=== PATIENT | female | born 1980 | race Caucasian/White ===

== ENCOUNTER 2020-03-29 20:00 | Outpatient (CLI) | payer OTHER, SELFPAY | END 2020-03-29 20:01 | disposition home or self-care (01) | LOC: SLEEP 03-30 08:45 | PROVIDERS: Visit Provider Nurse Practitioner | DX: G47.33 Obstructive sleep apnea (adult) (pediatric) (principal) | CPT/HCPCS: 95811 ==

== ENCOUNTER 2020-04-07 15:32 | Outpatient (CLI) | payer OTHER, SELFPAY ==
[2020-04-07 16:11] LABS: Basophils # 0.1 10^3/uL (0.0-0.1); Basophils % 0.5 %; Eosinophils # 0.2 10^3/uL (0.0-0.8); Eosinophils % 2.1 %; Hematocrit 45.4 % (37.0-47.0); Hemoglobin 14.9 g/dL (11.5-15.3); Lymphocytes # 3.9 10^3/uL (0.8-4.8); Lymphocytes % 35.3 %; Mean Corpuscular HGB Conc 32.8 g/dL (30.0-36.0); Mean Corpuscular Hemoglobin 29.5 pg (28.0-34.0); Mean Corpuscular Volume 89.9 fL (81-99); Mean Platelet Volume 8.8 fL (7.4-10.4); Monocytes # 0.5 10^3/uL (0.2-0.9); Monocytes % 4.5 %; Neutrophils # 6.32 10^3/uL (1.8-7.7); Neutrophils % 57.2 %; Nucleated Red Blood Cells % 0 %; Platelet Count 319 10^3/cmm (130-400); Red Blood Count 5.05 10^6/uL (4.1-5.3); Red Cell Distribution Width 12.2 % (12.1-15.1)
[2020-04-07 17:14] LABS: Alanine Aminotransferase 15 U/L (0-33); Albumin Level 4.2 g/dL (3.5-5.2); Alkaline Phosphatase 147 IU/L (35-105); Aspartate Amino Transferase 16 U/L (0-32); Blood Urea Nitrogen 6 mg/dL (6-20); Calcium 9.8 mg/dL (8.5-10.5); Carbon Dioxide 28 mmol/L (22-29); Chloride 99 mmol/L (98-107); Globulin 3.3 g/dL (1.3-4.6); Glomerular Filtration Rate 93.6 mL/min (90-130); Glucose 89 mg/dL (65-115); Osmolality Calculated 279 mOsm/kg (285-295); Sodium 136 mmol/L (136-145); Total Bilirubin 0.2 mg/dL (0.15-1.2); Total Protein 7.5 g/dL (6.6-8.7)
[2020-04-07 17:45] LABS: HIV 1 & 2 Antibody Non-Reactive (Non-Reactiv); HIV 1 & 2 Antigen Non-Reactive (Non-Reactiv)
[2020-04-07 17:49] LABS: Hepatitis A Antibody IgM Non-Reactive (Nonreactive); Hepatitis B Core AB, Total Non-Reactive (Nonreactive); Hepatitis B Surface Antigen Non-Reactive (Nonreactive); Hepatitis C Virus Antibody Non-Reactive (Nonreactive)
[2020-04-09 14:14] LABS: Quantiferon Mitogen >10.00 IU/mL; Quantiferon Nil 0.02 IU/mL; Quantiferon Plus TB1 0.06 IU/mL; Quantiferon Plus TB2 0.09 IU/mL; Quantiferon TB Gold NEGATIVE (NEGATIVE)
== END 2020-04-07 15:33 | disposition home or self-care (01) ==
PROVIDERS: PCP Nurse Practitioner; Visit Provider Dermatology
DX: L73.2 Hidradenitis suppurativa (principal); Z79.899 Other long term (current) drug therapy
CPT/HCPCS: 36415; 80053; 85025; 86480; 86705; 86706; 86709; 86803; 87340; 87806

== ENCOUNTER → 2021-01-06 11:55 | Outpatient (BNVA) | payer OTHER, SELFPAY | PROVIDERS: PCP Nurse Practitioner; Visit Provider Surgery | DX: Z11.52 Encounter for screening for COVID-19 (principal) | CPT/HCPCS: 87635 ==

== ENCOUNTER 2021-01-12 08:26 | Day surgery (SDC) | payer OTHER, SELFPAY ==
[2021-01-07 09:32] VITALS: BMI 31.1
--- NOTE | 2021-01-12 08:47 | ANES.PREANE2 ---
Pre-Anesthetic Assessment Pre-Anesthetic Assessment: Height/Weight: Height 1.55 m Weight 74.843 kg Proposed Procedure: Operation Date: 01/12/21 10:00 Proposed Procedures p EGD/colon 49194 97003 K21.9 R19.45(Not Applicable) - Lionel Barclay MD s Colonoscopy(Not Applicable) - Lionel Barclay MD Was Beta Stew taken within 24 hours: N/A Was Clonidine taken within 24 hours: N/A Social: Social History: Tobacco and No alcohol Exam: Pre-Anes Outpt Exam: alert, oriented x 3 and regular rate & rhythm Airway: Submandibular: WNL Cervical ROM: WNL MP: 2 Dentition: Full Pulmonary: Pulmonary: COPD GI: GI: GERD Metabolic: Metabolic: Thyroid Anesthetic Plan: ASA status: 2 Anesthesia: MAC Risk of > 500 ml blood loss (7ml/kg in children): No PFSH Anesthesia PFSH: Medical History Hidradenitis suppurativa High risk medication use Hypothyroid Surgical History H/O knee surgery History of tubal ligation Hx of appendectomy Family History Other Cancer Social History Alcohol intake: never Female Reproductive History: Date of last menstrual period: 12/24/20 Data Anesthesia Cardiac Studies: No Data to Display
[2021-01-12 09:22] VITALS: BP 118/69; PULSE 76; RESP 18; TEMP 36.7; O2SAT 97
[2021-01-12 09:22] LABS: OR HCG Qualitative Urine Negative (Negative)
[2021-01-12] MEDS: sodium chloride 0.9% 1,000 ML 30 ML IV (09:38)
--- NOTE | 2021-01-12 09:48 | W.PM.OPSFHP ---
Same Day Surgery H&P Indication for Procedure/HPI DATE OF PROCEDURE: January 12, 2021 CHIEF COMPLAINT/INDICATIONFOR SURGICAL PROCEDURE: Issues with the bowel PREOP DIAGNOSIS: Change in bowel habits and acid reflux PLANNED PROCEDRUE: Operation Date: 01/12/21 10:00 Proposed Procedures p EGD/colon 49851 53748 K21.9 R19.45(Not Applicable) - Lionel Barclay MD s Colonoscopy(Not Applicable) - Lionel Barclay MD 11/25/2020 This is a pleasant 40 years old female patient presents to my practice with history of diarrhea alternating with constipation without bleeding per rectum for the past 3 to 4 years. Without obvious explanation. Still have her gallbladder as she reports but she does not have any issues with specific type of food. Patient also reports that she has been on PPI therapy for more than 6 months for acid reflux disease. She was started recently on Humira per dermatology service for recurrent hidradenitis suppurativa. No evidence of history of colon cancer. Interim history 01/12/2021 Patient comes today for diagnostic EGD and colonoscopy ROS All systems have been reviewed negative except as per the above or per problem list Medications/Allergies* Home Medications Medication Instructions Recorded Confirmed Type gemfibrozil 600 mg tablet 600 mg PO BID 04/07/20 01/07/21 History levothyroxine 75 mcg tablet 75 mcg PO DAILY 04/07/20 01/07/21 History omeprazole 20 mg capsule,delayed 20 mg PO DAILY 04/07/20 01/07/21 History release Allergies/Adverse Reactions Allergy/AdvReac Type Severity Reaction Status Date / Time ibuprofen Allergy kidney Verified 01/12/21 09:50 [From NeoProfen (ibuprofen problems lysn)(PF)] Current Medications: Generic Name Dose Route Start Last Admin Trade Name Freq PRN Reason Stop Dose Admin Sodium Chloride 1,000 mls @ 30 mls/hr 01/12/21 09:00 01/12/21 09:38 Sodium Chloride 0.9% IV 01/13/21 08:59 30 mls/hr .Q24H MEGAN Administration Pertinent History/Comorbid Conditions* Medical History (Updated 11/27/20 @ 08:36 by Lionel Barclay MD) Hidradenitis suppurativa High risk medication use Hypothyroid Surgical History (Updated 04/11/20 @ 14:54 by Bernarda Rebollar DO) H/O knee surgery History of tubal ligation Hx of appendectomy Family History (Updated 04/07/20 @ 15:01 by Regina Lundberg LPN) Cancer Social History Alcohol intake: never Pertinent Exam Findings alert, oriented x 3, clear to auscultation bilaterally, regular rate & rhythm and procedure specific exam findings (Abdominal examination nontender nondistended soft) Recommendations Surgery/Procedure today (EGD and colonoscopy with possible biopsy) Other Plans: Plan of care; After thorough history and physical examination and reviewing the chart, plan to perform a diagnostic esophagogastroduodenoscopy and diagnostic colonoscopy with possible biopsy and possible polypectomy. I discussed with the patient in detail the risks,benefits,alternatives and indications.The risk of aspiration, bleeding, soft tissue injury, perforation of the stomach/esophagus/colon and other potential concomitant complications were explained to the patient in details also the potential need for Thoracotomy and or Laproscoy/Laparotomy to repair any related complications including but not limited to colectomy and or Closotomy. The patient understood this well and did agree to proceed. Rationale was carefully and clearly discussed with the patient.Appropriate informed consent have been reviewed and signed Verbal and written Instructions were given to the patient for colonoscopy prep Coding Level of Care Code Acute Compounder [employer] for [facility] [place]
[2021-01-12 12:03] VITALS: BP 107/82; PULSE 93; RESP 20; TEMP 36.2; O2SAT 96
[2021-01-12 12:13] VITALS: BP 103/80; PULSE 92; RESP 20; O2SAT 97
--- NOTE | 2021-01-12 13:29 | ANE.PACU2 ---
Inpatient post-anesthesia follow up: Airway intact: Yes Vital signs: Temperature 97.2 F Pulse Rate 92 Respiratory Rate 20 Blood Pressure 103/80 Pulse Oximetry 97 Oxygen Delivery Me thod Nasal Cannula Oxygen Flow Rate 4 Fraction of Inspir ed Oxygen Hydration adequate: Yes Nausea and vomiting: No Pain level: 1 Mental status: Baseline
[2021-01-13 13:03] LABS: H. Pylori / CLO Test Negative
== END 2021-01-12 12:59 | disposition home or self-care (01) ==
PROVIDERS: Anesthesiology; PCP Nurse Practitioner; Visit Provider Surgery
PROC: 0DJ08ZZ Inspection of Upper Intestinal Tract, Via Natural or Artificial Opening Endoscopic (ICD-10-PCS; CPT 43235; principal; 2021-01-12 10:00)
PROC: 0DJD8ZZ Inspection of Lower Intestinal Tract, Via Natural or Artificial Opening Endoscopic (ICD-10-PCS; CPT 45378; 2021-01-12 10:00)
DX: R19.4 Change in bowel habit (principal); R19.7 Diarrhea, unspecified; K21.9 Gastro-esophageal reflux disease without esophagitis; E03.9 Hypothyroidism, unspecified; K31.7 Polyp of stomach and duodenum; K63.3 Ulcer of intestine; J44.9 Chronic obstructive pulmonary disease, unspecified; Z11.0 Encounter for screening for intestinal infectious diseases
CPT/HCPCS: 43239; 45380; 82274; 83630; 84703; 87077; 87493; 87506; 88305; 96360; 96361; J2704; J7030

== ENCOUNTER 2021-04-12 11:58 | Emergency (ER) | payer OTHER, SELFPAY ==
[2021-04-12 12:31] VITALS: BP 119/78; PULSE 90; RESP 16; TEMP 36.9; O2SAT 97; BMI 31.1
[2021-04-12 13:38] LABS: Basophils # 0.1 10^3/uL (0.0-0.1); Basophils % 0.6 %; Eosinophils # 0.3 10^3/uL (0.0-0.8); Eosinophils % 3.2 %; Hematocrit 45.1 % (37.0-47.0); Hemoglobin 15.1 g/dL (11.5-15.3); Lymphocytes # 3.6 10^3/uL (0.8-4.8); Lymphocytes % 36.1 %; Mean Corpuscular HGB Conc 33.5 g/dL (30.0-36.0); Mean Corpuscular Volume 92.6 fl (81-99); Mean Platelet Volume 9.1 fL (7.4-10.4); Monocytes # 0.8 10^3/uL (0.2-0.9); Neutrophils # 5.19 10^3/uL (1.8-7.7); Neutrophils % 51.8 %; Nucleated Red Blood Cells % 0 %; Platelet Count 281 10^3/cmm (130-400); Red Blood Count 4.87 10^6/uL (4.1-5.3); Red Cell Distribution Width 12.2 % (12.1-15.1)
[2021-04-12 14:06] LABS: Alanine Aminotransferase 19 U/L (0-33); Albumin Level 4.2 g/dL (3.5-5.2); Alkaline Phosphatase 105 IU/L (35-105); Anion Gap 12.9 (5-19); Aspartate Amino Transferase 16 U/L (0-32); Blood Urea Nitrogen 6 mg/dL (6-20); Calcium 8.7 mg/dL (8.5-10.5); Carbon Dioxide 26 mmol/L (22-29); Chloride 101 mmol/L (98-107); Globulin 2.3 g/dL (1.3-4.6); Glomerular Filtration Rate 93.2 mL/min (90-130); Glucose 97 mg/dL (65-115); HCG, Serum Qual Negative (Negative); Osmolality Calculated 280 mOsm/kg (285-295); Potassium 3.9 mmol/L (3.5-5.1); Sodium 136 mmol/L (136-145); Thyroid Stimulating Hormone 0.42 uIU/mL (0.27-4.20); Total Bilirubin 0.2 mg/dL (0.15-1.2); Total Protein 6.5 g/dL (6.6-8.7)
[2021-04-12 14:09] LABS: Add Urine Microscopic? NO; Charge for UA Resulting for Rev
[2021-04-12 14:25] LABS: Bilirubin Urine Neg (Negative); Blood Urine Neg (Negative); Glucose Urine UA Norm (Normal); Ketones Urine Negative (Negative); Leukocyte Esterase Urine Negative (Negative); Nitrate Urine Negative (Negative); Protein Urine Neg (Negative); Specific Gravity, Urine 1.015 (1.005-1.030); Urine Appearance Clear (CLEAR); Urine Color Yellow (Yellow); Urobilinogen Urine Neg (Negative); pH Urine 7 (5-7)
== END 2021-04-12 16:30 | disposition left against medical advice (07) ==
PROVIDERS: Physician Assistant; Emergency Provider Family Medicine; PCP Nurse Practitioner
DX: Z53.21 Procedure and treatment not carried out due to patient leaving prior to being seen by health care provider (principal)
CPT/HCPCS: 80053; 81003; 84443; 84703; 85025

== ENCOUNTER 2021-04-26 16:06 | Emergency (ER) | payer OTHER, SELFPAY ==
[2021-04-26 16:20] VITALS: BP 118/77; PULSE 101; RESP 19; TEMP 37.6; O2SAT 96; BMI 31.1
--- NOTE | 2021-04-26 16:32 | XR_ITS ---
WS: [id number] XR chest 1V portable [id number] REASON FOR EXAM: covid symptoms FINDINGS: The heart and the mediastinum are within normal limits. There is calcified granulomatous disease in both hemithoraces. There are hazy reticular lung opacities in both lower lungs. The bony thorax is intact. XR/XR chest 1V portable [id number] IMPRESSION: Bilateral lower lung opacities compatible with early pneumonitis. Appearance an d distribution compatible with Covid pneumonitis.
[2021-04-26 23:56] VITALS: BP 127/84; PULSE 89; RESP 17; TEMP 37.2; O2SAT 97
--- NOTE | 2021-04-27 | W.ED.GENADLT ---
HPI - General Adult General: Chief complaint: Headache Stated complaint: Headache,fever Time Seen by Provider: 04/26/21 23:44 Source: patient Mode of arrival: ambulatory Limitations: no limitations History of Present Illness: Patient is a 40-year-old female who presents to ED today with a complaint of a headache, fevers of up to 103, body aches, and diarrhea. She states she is also not had much of an appetite. Patient tells me symptoms started yesterday. No sick contacts. Patient tells me she believes it is related to malaria. Patient states she had an active infection of malaria after serving in the in [facility] almost 20 years ago. Patient states two years later she had a re-emergence of infection. States her symptoms today are identical. No recent travel. Patient is afebrile upon arrival to ED. No bloody diarrhea. She has no abdominal complaints. Denies dysuria, frequency, urgency or flank pains. No visual changes. No trouble with articulation or ambulation. Onset (ago): day(s) Severity: moderate Associated symptoms: Reports headache(s); Deny chest pain, confusion, dyspnea, rash, palpitations or vomiting Review of Systems Const: Reports: fever(s), chills, body aches and change in appetite; Denies: change in weight or fatigue Eyes: Denies: change in vision ENMT: Denies: throat pain, odynophagia, nasal discharge or nasal congestion Card: Denies: chest pain, palpitations or edema Resp: Denies: dyspnea, productive cough, wheezing, hemoptysis or chest congestion GI: Reports: diarrhea; Denies: abdominal pain, vomiting, hematochezia or melena : Denies: flank pain, dysuria or hematuria Skin/Breast: Denies: rash Neuro: Reports: headache(s); Denies: numbness in extremities, weakness in extremities, sensory changes, difficulty walking, dizziness or confusion PFSH ED PFSH: Medical History Hidradenitis suppurativa High risk medication use Hypothyroid Surgical History H/O knee surgery History of tubal ligation Hx of appendectomy Family History Other Cancer Social History Alcohol intake: never History of recent travel: No Female Reproductive History: Date of last menstrual period: 12/24/20 Physical Exam Const: COMMON NORMALS: no acute distress, patient oriented x3, no limitations and alert GENERAL APPEARANCE: cooperative ORIENTATION/CONSCIOUSNESS: Yes awake, Yes oriented to person, Yes oriented to place and Yes oriented to time HENMT: COMMON NORMALS: normocephalic and atraumatic HEAD & SCALP: normal to inspection, normocephalic and atraumatic FACE & SINUS: normal facial exam Neck/C-Spine: COMMON NORMALS: full ROM, no lymphadenopathy and no meningeal signs Resp: COMMON NORMALS: normal respiratory effort and clear to auscultation bilaterally AUSCULTATION: clear to auscultation bilaterally Cardio: COMMON NORMALS: regular rate and regular rhythm RATE: regular rate RHYTHM: regular rhythm GI: COMMON NORMALS: Normal to inspection, nondistended, normoactive bowel sounds present, Soft to palpation, non-tender, No hepatosplenomegaly present and no masses PALPATION: Yes Soft to palpation and Yes No hepatosplenomegaly present : COMMON NORMALS: Yes no CVA tenderness BLADDER/KIDNEY EXAM: Yes no CVA tenderness Back/Pelvis: COMMON NORMALS: no CVA tenderness Extremity: COMMON NORMALS: normal to inspection and no calf tenderness Neuro: DALE COMA SCALE: document GCS findings Dale coma scale eye opening: Spontaneous Dale coma scale verbal response: Orientated Dale coma scale motor response: Obey commands Dale coma scale total score: 15 COMMON NORMALS: patient oriented x3, CN's II-XII intact bilaterally, moves all extremities, no focal motor deficits, no sensory deficits noted and gait normal SENSORIUM/ORIENTATION: Yes alert, Yes oriented to person, Yes oriented to place and Yes oriented to time MENINGEAL SIGNS: Yes no meningeal signs MOTOR EXAM: 5/5 motor strength present throughout Skin: COMMON NORMALS: no rashes or lesions noted GENERAL SKIN EXAM: no rashes or lesions noted Course Vital Signs: Vital signs: Vital Signs Temperature 98.9 F 04/26/21 23:56 Pulse Rate 89 04/27/21 00:15 Respiratory Rate 17 04/27/21 00:15 Blood Pressure 122/89 04/27/21 00:15 Pulse Oximetry 93 04/27/21 00:15 MDM - General Adult Medical Decision Making Patient is an immunosuppressed (patient on adalimumab) unvaccinated individual with COVID-19. She is on day 2 of symptoms. Patient already has mild bilateral lower pneumonia. She has risk for severe progression and would meet criteria for Tier 1 treatment of COVID treatment options. Appropriate paperwork has been filed and faxed for treatment with Molnupiravir. Patient contact number is [phone]. Vitals at this time are stable. She is satting normally on RA. There is no qualifications for hospitalization at this time. Lab Data : 04/26/21 00:20 04/26/21 00:20 Radiology Impressions Chest X-Ray 04/26/21 16:32 IMPRESSION: Bilateral lower lung opacities compatible with early pneumonitis. Appearance and distribution compatible with Covid pneumonitis. Laboratory Results WBC 6.1 10^3/uL (4.0-10.0) 04/26/21 00:20 RBC 4.75 10^6/uL (4.1-5.3) 04/26/21 00:20 Hgb 14.6 g/dL (11.5-15.3) 04/26/21 00:20 Hct 43.5 % (37.0-47.0) 04/26/21 00:20 MCV 91.6 fl (81-99) 04/26/21 00:20 MCH 30.7 pg (28.0-34.0) 04/26/21 00:20 MCHC 33.6 g/dL (30.0-36.0) 04/26/21 00:20 RDW 12.4 % (12.1-15.1) 04/26/21 00:20 Plt Count 222 10^3/cmm (130-400) 04/26/21 00:20 MPV 9.3 fL (7.4-10.4) 04/26/21 00:20 Neut % (Auto) 45.7 % 04/26/21 00:20 Lymph % (Auto) 41.2 % 04/26/21 00:20 Bremer % (Auto) 12.4 % 04/26/21 00:20 Eos % (Auto) 0.2 % 04/26/21 00:20 Baso % (Auto) 0.3 % 04/26/21 00:20 Neut # (Auto) 2.81 10^3/uL (1.8-7.7) 04/26/21 00:20 Lymph # (Auto) 2.5 10^3/uL (0.8-4.8) 04/26/21 00:20 Bremer # (Auto) 0.8 10^3/uL (0.2-0.9) 04/26/21 00:20 Eos # (Auto) 0.0 10^3/uL (0.0-0.8) 04/26/21 00:20 Baso # (Auto) 0.0 10^3/uL (0.0-0.1) 04/26/21 00:20 Nucleated RBC % (auto) 0 % 04/26/21 00:20 Nucleated RBCs # 0.0 /100WBC 04/26/21 00:20 Sodium 136 mmol/L (136-145) 04/26/21 00:20 Potassium 3.6 mmol/L (3.5-5.1) 04/26/21 00:20 Chloride 103 mmol/L (98-107) 04/26/21 00:20 Carbon Dioxide 19 mmol/L (22-29) L 04/26/21 00:20 Anion Gap 17.6 (5-19) 04/26/21 00:20 BUN 10 mg/dL (6-20) 04/26/21 00:20 Creatinine 0.9 mg/dL (0.5-0.9) 04/26/21 00:20 GFR Calculation 69.7 mL/min (90-130) L 04/26/21 00:20 Glucose 81 mg/dL (65-115) 04/26/21 00:20 Calculated Osmolality 280 mOsm/kg (285-295) L 04/26/21 00:20 Calcium 9.3 mg/dL (8.5-10.5) 04/26/21 00:20 Total Bilirubin 0.2 mg/dL (0.15-1.2) 04/26/21 00:20 AST 25 U/L (0-32) 04/26/21 00:20 ALT 22 U/L (0-33) 04/26/21 00:20 Alkaline Phosphatase 95 IU/L (35-105) 04/26/21 00:20 Total Protein 6.8 g/dL (6.6-8.7) 04/26/21 00:20 Albumin 4.6 g/dL (3.5-5.2) 04/26/21 00:20 Globulin 2.2 g/dL (1.3-4.6) 04/26/21 00:20 HCG, Qual Negative (Negative) 04/27/21 00:20 Influenza Type A Ag Negative (Negative) 04/26/21 23:50 Influenza Type B Ag Negative (Negative) 04/26/21 23:50 SARS-CoV-2 Ag (Rapid) Positive (Negative) H 04/26/21 23:50 Discharge Plan Discharge Patient Disposition: Home Clinical Impression: COVID-19 Condition: Stable Prescriptions: No Action Humira 40 mg/0.8 mL syringe kit 40 mg SUBCUT Q14D Qty: 2 2RF Rx Instructions: start on day 29 of therapy following loading injections levothyroxine [Synthroid] 75 mcg tablet 75 mcg PO DAILY 0RF gemfibrozil 600 mg tablet 600 mg PO BID 0RF omeprazole 20 mg capsule,delayed release(DR/EC) 20 mg PO DAILY 0RF Humira Pen [id number] Start 40 mg/0.8 mL pen injector kit See Rx Instructions SUBCUT .COMPLEX Qty: 4 0RF Rx Instructions: inject four - 40 mg/0.8 mL pens on Day 1 (in office); inject two - 40 mg/0.8 mL pens on Day 15 of therapy SUBCUT Discharge Orders: Discharge ED (Routine); Ordered 04/27/21 Ordered By: Susie Card Referrals: Noemy Lozano FNP [Primary Care Provider] - Patient Instructions: COVID-19 (Coronavirus Disease 2019) (ED) Activity Restrictions/Additional Instructions: As we discussed you should hear from us in the next 24 to 48 hours for approval of the FDA approved emergency use only medication Molnupiravir for treatment of your COVID-19 infection. You need to return to the emergency department at anytime for severe shortness of breath or difficulty breathing or any other concerns you may have. Coding Level of Care Code ED [place] [employer] for [employer] Exam Comprehensive
[2021-04-27 00:13] VITALS: O2SAT 97
[2021-04-27 00:15] VITALS: BP 122/89; PULSE 89; RESP 17; O2SAT 93
[2021-04-27 00:47] LABS: Basophils % 0.3 %; Eosinophils % 0.2 %; Hematocrit 43.5 % (37.0-47.0); Hemoglobin 14.6 g/dL (11.5-15.3); Lymphocytes # 2.5 10^3/uL (0.8-4.8); Lymphocytes % 41.2 %; Mean Corpuscular HGB Conc 33.6 g/dL (30.0-36.0); Mean Corpuscular Hemoglobin 30.7 pg (28.0-34.0); Mean Corpuscular Volume 91.6 fl (81-99); Mean Platelet Volume 9.3 fL (7.4-10.4); Monocytes # 0.8 10^3/uL (0.2-0.9); Monocytes % 12.4 %; Neutrophils # 2.81 10^3/uL (1.8-7.7); Neutrophils % 45.7 %; Nucleated Red Blood Cells % 0 %; Platelet Count 222 10^3/cmm (130-400); Red Blood Count 4.75 10^6/uL (4.1-5.3); Red Cell Distribution Width 12.4 % (12.1-15.1); White Blood Count 6.1 10^3/uL (4.0-10.0)
[2021-04-27 00:50] LABS: Influenza A by IFA Negative (Negative); Influenza B by IFA Negative (Negative); SARS Covid-2 Antigen Positive (Negative)
[2021-04-27 01:27] LABS: Alanine Aminotransferase 22 U/L (0-33); Albumin Level 4.6 g/dL (3.5-5.2); Alkaline Phosphatase 95 IU/L (35-105); Anion Gap 17.6 (5-19); Aspartate Amino Transferase 25 U/L (0-32); Blood Urea Nitrogen 10 mg/dL (6-20); Calcium 9.3 mg/dL (8.5-10.5); Carbon Dioxide 19 mmol/L (22-29); Chloride 103 mmol/L (98-107); Globulin 2.2 g/dL (1.3-4.6); Glomerular Filtration Rate 69.7 mL/min (90-130); Glucose 81 mg/dL (65-115); Osmolality Calculated 280 mOsm/kg (285-295); Potassium 3.6 mmol/L (3.5-5.1); Sodium 136 mmol/L (136-145); Total Bilirubin 0.2 mg/dL (0.15-1.2); Total Protein 6.8 g/dL (6.6-8.7)
[2021-04-27 01:54] LABS: HCG, Serum Qual Negative (Negative)
[2021-04-27 02:23] LABS: Add Urine Microscopic? YES; Bacteria Urine TRACE /hpf; Bilirubin Urine Neg (Negative); Blood Urine 2+ (Negative); Glucose Urine UA Norm (Normal); Ketones Urine 1+ (Negative); Leukocyte Esterase Urine Negative (Negative); Mucus Urine 3+ /hpf; Nitrate Urine Negative (Negative); Protein Urine Neg (Negative); RBC Urine 0-4 /hpf (0-2); Specific Gravity, Urine 1.025 (1.005-1.030); Squamous Epithelial Cell Urine 0-4 /hpf (0-5); Urine Appearance Clear (CLEAR); Urine Color Yellow (Yellow); Urobilinogen Urine Norm (Negative); WBC Urine 0-4 /hpf (0-5); pH Urine 5 (5-7)
[2021-04-27 02:24] LABS: Add Urine Culture? No
--- NOTE | 2021-04-29 15:48 | PC.NURSE ---
Pt called and informed that we have a Rx for her, she sts she lives 1.5 hours away and won't be coming to pick it up.
== END 2021-04-27 02:23 | disposition home or self-care (01) ==
PROVIDERS: Emergency Provider Physician Assistant; PCP Nurse Practitioner
DX: U07.1 COVID-19 (principal)
CPT/HCPCS: 71045; 80053; 81001; 84703; 85025; 87426; 87804; 99283

== ENCOUNTER 2021-06-16 20:00 | Outpatient (CLI) | payer OTHER, SELFPAY | END 2021-06-16 20:01 | disposition home or self-care (01) | LOC: SLEEP 06-20 08:10 | PROVIDERS: PCP Nurse Practitioner; Visit Provider Nurse Practitioner | DX: G47.30 Sleep apnea, unspecified (principal) | CPT/HCPCS: 95811 ==

== ENCOUNTER 2021-08-02 13:57 | Outpatient (CLI) | payer OTHER, SELFPAY ==
[2021-08-04 13:34] LABS: Quantiferon Mitogen >10.00 IU/mL; Quantiferon Nil 0.06 IU/mL; Quantiferon Plus TB1 0.02 IU/mL; Quantiferon Plus TB2 0.02 IU/mL; Quantiferon TB Gold NEGATIVE (NEGATIVE)
== END 2021-08-02 13:58 | disposition home or self-care (01) ==
LOC: LAB 13:58
PROVIDERS: PCP Nurse Practitioner; Visit Provider Dermatology
DX: L73.2 Hidradenitis suppurativa (principal); Z79.899 Other long term (current) drug therapy
CPT/HCPCS: 86480

== ENCOUNTER 2021-10-11 06:01 | Outpatient (CLI) | payer OTHER, SELFPAY ==
--- NOTE | 2021-10-11 06:15 | US_ITS ---
WS: [id number] RIGHT UPPER QUADRANT ULTRASOUND HISTORY: RUQ pain COMPARISON: None available. Liver: 14.0 cm in length. Normal size liver. No bile duct dilatation or mass. Portal Vein: Normal hepatopetal flow with monophasic waveform. Gallbladder: Mildly contracted gallbladder. No stones or pericholecystic fluid. Gallbladder wall kim ins normal size. CBD: 0.4 cm Pancreas: Normal size and echogenicity. Right kidney: 10.6 cm in length. Normal size and echogenicity. No hydronephrosis or mass. Aorta and IVC: Unremarkable abdominal aorta and IVC. No ascites. US/US gall bladder [id number] IMPRESSION: 1. Mildly contracted gallbladder without cholelithiasis. May be due to nonfast ing state or changes of chronic cholecystitis. 2. No bile duct dilatation.
== END 2021-10-11 06:02 | disposition home or self-care (01) ==
LOC: RAD 06:02
PROVIDERS: PCP Nurse Practitioner; Visit Provider Internal Medicine
DX: R10.11 Right upper quadrant pain (principal)
CPT/HCPCS: 76705

== ENCOUNTER → 2021-12-21 15:18 | Outpatient (BNVA) | payer OTHER, SELFPAY | PROVIDERS: PCP Nurse Practitioner; Visit Provider Surgery | DX: R10.11 Right upper quadrant pain (principal) | CPT/HCPCS: 99213 ==

== ENCOUNTER 2022-02-13 07:58 | Outpatient (CLI) | payer OTHER, SELFPAY ==
--- NOTE | 2022-02-13 08:30 | FL_ITS ---
WS: [id number] FL small bowel [place] gastro [id number] REASON FOR EXAM: Right upper quadrant pain FLUOROSCOPY TIME: 0min [id number] # OF SPOT FILMS: Multiple FINDINGS: The contrast reached the colon within 40 minutes. The caliber and mucosal pattern of the duodenum, jejunum, and ileum were normal. Under fluoroscopy the terminal ileum was localized and additional imaging obtained. The terminal ileu m was normal. The other fluoroscopically directed images of the small bowel also demonstrated no abno rmality. Incidentally noted was a 7 mm calcification in the left abdomen which was most consistent with a left intrarenal calculus. FL/FL small bowel FT gastro [id number] IMPRESSION: No abnormality of the small bowel. Probable left intrarenal calculus as above.
== END 2022-02-13 07:59 | disposition home or self-care (01) ==
LOC: RAD 08:02
PROVIDERS: PCP Nurse Practitioner; Visit Provider Surgery
DX: R10.11 Right upper quadrant pain (principal)
CPT/HCPCS: 74250

== ENCOUNTER 2022-04-20 15:18 | Emergency (ER) | payer OTHER, SELFPAY ==
--- NOTE | 2022-04-20 15:21 | ECG_ITS ---
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 Measurements Intervals Plain Rate: 85 P: 69 ME: 123 QRS: 40 QRSD: 89 T: 19 QT: 366 QTc: 436 Interpretive Statements SINUS RHYTHM POSSIBLE RIGHT VENTRICULAR CONDUCTION DELAY [RSR (QR) IN V1/V2] No previous ECG available for comparison Electronically Signed On 04-20-2022 21:00:05 EXTRUSION BENDER by Akila Felton M.D. [id number]
--- NOTE | 2022-04-20 15:22 | W.ED.WEAKNES ---
HPI - Weakness General: Chief complaint: Weakness Stated complaint: WEAKNESS Time Seen by Provider: 04/20/22 15:21 Source: patient Mode of arrival: EMS History of Present Illness: 41-year-old female presents emergency room via ambulance from the [place] [facility]. Was initially seen for ear infection started on amoxicillin she felt like the amoxicillin made her symptoms worse. She started on the she had stopped that. She first developed diarrhea that ceased but then began having a cough generalized myalgias body aches. She has not noticed a real high-grade fever. There is low-grade temp on arrival here. Cough has been nonproductive. MD Complaint: generalized weakness Onset (ago): day(s) Duration: intermittent Location: generalized Relieving factors: none Exacerbating factors: none Associated symptoms: Reports decreased appetite; Denies chest pain, chills, confusion, melena, diaphoresis, dysuria, easy bruising, fever(s), headache(s), myalgias, nausea, rash, short of breath, syncope or vomiting Review of Systems Const: Denies: fever(s), chills or diaphoresis ENMT: Denies: throat pain Card: Denies: chest pain or syncope Resp: Reports: non-productive cough; Denies: dyspnea, productive cough or wheezing GI: Reports: diarrhea; Denies: abdominal pain, nausea, vomiting or melena : Denies: dysuria, urinary frequency or urinary urgency Neuro: Denies: headache(s) or confusion Diaz/Lymph: Denies: easy bruising PFSH ED PFSH: Medical History Hidradenitis suppurativa High risk medication use Hypothyroid Irritable bowel Mixed hyperlipidemia Surgical History H/O knee surgery History of tubal ligation Hx of appendectomy Family History Other Cancer Social History Smoking and tobacco status: current every day smoker cigarettes Alcohol intake: former History of recent travel: No Female Reproductive History: Date of last menstrual period: 12/24/20 Physical Exam Const: COMMON NORMALS: no acute distress GENERAL APPEARANCE: cooperative and comfortable ORIENTATION/CONSCIOUSNESS: Yes awake, Yes oriented to person, Yes oriented to place and Yes oriented to time HENMT: COMMON NORMALS: normocephalic, atraumatic, hearing grossly normal bilaterally, external ears normal, EAC's normal, TM's normal bilaterally, Normal nasal mucous membranes and turbinates present, moist oral mucous membranes and oropharynx normal HEAD & SCALP: normocephalic and atraumatic NOSE: Normal nasal mucous membranes and turbinates present EXTERNAL EAR: Yes external ears normal EXTERNAL AUDITORY CANAL: EAC's normal TYMPANIC MEMBRANE: TM's normal bilaterally Neck/C-Spine: COMMON NORMALS: full ROM, no lymphadenopathy, supple and no JVD Resp: COMMON NORMALS: normal respiratory effort, No retractions, No use of accessory muscles and clear to auscultation bilaterally AUSCULTATION: clear to auscultation bilaterally Cardio: COMMON NORMALS: no JVD, regular rate, regular rhythm and No murmurs present (Cardio) RATE: regular rate RHYTHM: regular rhythm GI: COMMON NORMALS: Soft to palpation and No hepatosplenomegaly present AUSCULTATION: Yes normoactive bowel sounds PALPATION: Yes Soft to palpation, No Tenderness to palpation present (GI), No Guarding due to palpation present (GI) and Yes No hepatosplenomegaly present Extremity: COMMON NORMALS: normal to inspection, capillary refill normal, no clubbing, cyanosis or edema, no calf tenderness and no pedal edema Neuro: SENSORIUM/ORIENTATION: Yes oriented to person, Yes oriented to place and Yes oriented to time Skin: COMMON NORMALS: no rashes or lesions noted GENERAL SKIN EXAM: no rashes or lesions noted Course Vital Signs: Vital signs: Vital Signs Temperature 99.5 F 04/20/22 15:34 Pulse Rate 93 04/20/22 15:34 Respiratory Rate 18 04/20/22 15:34 Blood Pressure 115/80 04/20/22 15:34 Pulse Oximetry 100 04/20/22 15:34 Oxygen Delivery Me thod 04/20/22 15:34 MDM - Weakness Medical Decision Making Labs and imaging reviewed COVID still pending. On exam there is no signs of meningeal irritation. White count is only 11 5 she does have a moderate cough symptoms all began with diarrhea suspect she does have COVID will contact her with results supportive cares follow-up as needed. No sign of pneumonia. She has recently completed a course of antibiotics. Upper respiratory exam unremarkable. Patient [facility] flu [facility] to be [facility] they were not repeated here. Medical Records I reviewed the patient's medical records. Lab Data I reviewed the patient's lab results. 04/20/22 15:00 04/20/22 15:00 Laboratory Results WBC 11.5 10^3/uL (4.0-10.0) H 04/20/22 15:00 RBC 4.80 10^6/uL (4.1-5.3) 04/20/22 15:00 Hgb 14.1 g/dL (11.5-15.3) 04/20/22 15:00 Hct 42.1 % (37.0-47.0) 04/20/22 15:00 MCV 87.7 fl (81-99) 04/20/22 15:00 MCH 29.4 pg (28.0-34.0) 04/20/22 15:00 MCHC 33.5 g/dL (30.0-36.0) 04/20/22 15:00 RDW 11.6 % (12.1-15.1) L 04/20/22 15:00 Plt Count 341 10^3/cmm (130-400) 04/20/22 15:00 MPV 9.1 fL (7.4-10.4) 04/20/22 15:00 Neut % (Auto) 66.8 % 04/20/22 15:00 Lymph % (Auto) 21.5 % 04/20/22 15:00 Perkins % (Auto) 8.4 % 04/20/22 15:00 Eos % (Auto) 2.1 % 04/20/22 15:00 Baso % (Auto) 0.4 % 04/20/22 15:00 Neut # (Auto) 7.67 10^3/uL (1.8-7.7) 04/20/22 15:00 Lymph # (Auto) 2.5 10^3/uL (0.8-4.8) 04/20/22 15:00 Perkins # (Auto) 1.0 10^3/uL (0.2-0.9) H 04/20/22 15:00 Eos # (Auto) 0.2 10^3/uL (0.0-0.8) 04/20/22 15:00 Baso # (Auto) 0.1 10^3/uL (0.0-0.1) 04/20/22 15:00 Nucleated RBC % (auto) 0 % 04/20/22 15:00 Nucleated RBCs # 0.0 /100WBC 04/20/22 15:00 Sodium 139 mmol/L (136-145) 04/20/22 15:00 Potassium 3.6 mmol/L (3.5-5.1) 04/20/22 15:00 Chloride 100 mmol/L (98-107) 04/20/22 15:00 Carbon Dioxide 29 mmol/L (22-29) 04/20/22 15:00 Anion Gap 13.6 (5-19) 04/20/22 15:00 BUN 5 mg/dL (6-20) L 04/20/22 15:00 Creatinine 0.7 mg/dL (0.5-0.9) 04/20/22 15:00 GFR Calculation 92.7 mL/min (90-130) 04/20/22 15:00 Glucose 91 mg/dL (65-115) 04/20/22 15:00 Calculated Osmolality 285 mOsm/kg (285-295) 04/20/22 15:00 Calcium 9.9 mg/dL (8.5-10.5) 04/20/22 15:00 Total Bilirubin 0.3 mg/dL (0.15-1.2) 04/20/22 15:00 AST 19 U/L (0-32) 04/20/22 15:00 ALT 18 U/L (0-33) 04/20/22 15:00 Alkaline Phosphatase 131 U/L (35-105) H 04/20/22 15:00 Total Protein 8.2 g/dL (6.6-8.7) 04/20/22 15:00 Albumin 4.0 g/dL (3.5-5.2) 04/20/22 15:00 Globulin 4.2 g/dL (1.3-4.6) 04/20/22 15:00 Lipase 44 U/L (13-60) 04/20/22 15:00 Urine Color Yellow (Yellow) 04/20/22 16:35 Urine Appearance Clear (CLEAR) 04/20/22 16:35 Urine pH 8 (5-7) H 04/20/22 16:35 Ur Specific Harmony 1.010 (1.005-1.030) 04/20/22 16:35 Urine Protein Neg (Negative) 04/20/22 16:35 Urine Glucose (UA) Norm (Normal) 04/20/22 16:35 Urine Ketones Negative (Negative) 04/20/22 16:35 Urine Blood Neg (Negative) 04/20/22 16:35 Urine Nitrate Negative (Negative) 04/20/22 16:35 Urine Bilirubin Neg (Negative) 04/20/22 16:35 Prot Sulfosalicylic Acd Negative (Negative) 04/20/22 16:35 Urine Urobilinogen Neg mg/dL (Negative) 04/20/22 16:35 Ur Leukocyte Esterase Negative (Negative) 04/20/22 16:35 Discharge Plan Discharge Patient Disposition: Home Clinical Impression: Viral URI with cough, Suspected COVID-19 virus infection Condition: Stable Prescriptions: No Action levothyroxine [Synthroid] 75 mcg tablet 75 mcg PO QAM pantoprazole [Protonix] 40 mg tablet,delayed release (DR/EC) 40 mg PO QAM zinc gluconate 50 mg Tablet 50 mg PO QAM triamcinolone acetonide 0.1 % ointment 1 applic topical BID PRN (Reason: unknown) Rx Instructions: to bites on legs/arms/trunk x 1 wk prn mupirocin 2 % ointment 1 applic topical BID PRN (Reason: unknown) Rx Instructions: Apply to open areas until healed Humira 40 mg/0.8 mL syringe kit 40 mg SUBCUT Q7D Rx Instructions: on fridays Discharge Orders: Discharge ED (Routine); Ordered 04/20/22 Ordered By: Franco Lunsford Referrals: Noemy Lozano FNP [Primary Care Provider] - Patient Instructions: Opioid Safety, Pain Management Activity Restrictions/Additional Instructions: You were seen today for respiratory symptoms. Suspect he may have COVID. We will contact you with results of the test supportive cares Tylenol ibuprofen as needed. Coding Level of Care Code ED Mechanical Reliability Engineer for Giancarlo Fwd Exam Comprehensive
[2022-04-20 15:30] VITALS: BP 106/86; PULSE 101; RESP 18; O2SAT 100
[2022-04-20 15:34] VITALS: BP 115/80; PULSE 93; RESP 18; TEMP 37.5; O2SAT 100; BMI 31.5
[2022-04-20 15:46] LABS: Basophils # 0.1 10^3/uL (0.0-0.1); Basophils % 0.4 %; Eosinophils # 0.2 10^3/uL (0.0-0.8); Eosinophils % 2.1 %; Hematocrit 42.1 % (37.0-47.0); Hemoglobin 14.1 g/dL (11.5-15.3); Lymphocytes # 2.5 10^3/uL (0.8-4.8); Lymphocytes % 21.5 %; Mean Corpuscular HGB Conc 33.5 g/dL (30.0-36.0); Mean Corpuscular Hemoglobin 29.4 pg (28.0-34.0); Mean Corpuscular Volume 87.7 fl (81-99); Mean Platelet Volume 9.1 fL (7.4-10.4); Monocytes % 8.4 %; Neutrophils # 7.67 10^3/uL (1.8-7.7); Neutrophils % 66.8 %; Nucleated Red Blood Cells % 0 %; Platelet Count 341 10^3/cmm (130-400); Red Cell Distribution Width 11.6 % (12.1-15.1); White Blood Count 11.5 10^3/uL (4.0-10.0)
[2022-04-20 16:15] LABS: Alanine Aminotransferase 18 U/L (0-33); Alkaline Phosphatase 131 U/L (35-105); Anion Gap 13.6 (5-19); Aspartate Amino Transferase 19 U/L (0-32); Blood Urea Nitrogen 5 mg/dL (6-20); Calcium 9.9 mg/dL (8.5-10.5); Carbon Dioxide 29 mmol/L (22-29); Chloride 100 mmol/L (98-107); Creatinine Clr Calc Pharmacy 99.4702; Globulin 4.2 g/dL (1.3-4.6); Glomerular Filtration Rate 92.7 mL/min (90-130); Glucose 91 mg/dL (65-115); Lipase 44 U/L (13-60); Osmolality Calculated 285 mOsm/kg (285-295); Potassium 3.6 mmol/L (3.5-5.1); Sodium 139 mmol/L (136-145); Total Bilirubin 0.3 mg/dL (0.15-1.2); Total Protein 8.2 g/dL (6.6-8.7)
[2022-04-20 16:30] VITALS: BP 122/77; PULSE 99; RESP 20; O2SAT 99
[2022-04-20 16:30] LABS: Slide Review Slide Review Perform
[2022-04-20 16:48] LABS: Add Urine Microscopic? NO; Charge for UA Resulting for Rev
--- NOTE | 2022-04-20 17:17 | XRR_ITS ---
PROCEDURE INFORMATION: Exam: XR Chest Exam date and time: 04/20/2022 5:33 PM Age: 41 years old Clinical indication: Other: N/ v/ neck stiffness; Additional info: Dyspnea/cough, nausea, vomitting, 1 week TECHNIQUE: Imaging protocol: Radiologic exam of the chest. Views: 1 view. COMPARISON: CR XR chest 1V portable [id number] 04/26/2021 4:45 PM FINDINGS: Lungs: Unremarkable. No consolidation. Pleural spaces: Unremarkable. No pleural effusion. No pneumothorax. Heart/Mediastinum: Unremarkable. No cardiomegaly. Bones/joints: Unremarkable. XR/XR chest 1V portable [id number] IMPRESSION: No acute findings.
[2022-04-20 17:19] LABS: Bilirubin Urine Neg (Negative); Blood Urine Neg (Negative); Glucose Urine UA Norm (Normal); Ketones Urine Negative (Negative); Leukocyte Esterase Urine Negative (Negative); Nitrate Urine Negative (Negative); Protein Urine Neg (Negative); Sulfosalicylic Acid Urine Negative (Negative); Urine Appearance Clear (CLEAR); Urine Color Yellow (Yellow); Urobilinogen Urine Neg (Negative); pH Urine 8 (5-7)
[2022-04-20 18:00] VITALS: BP 118/73; PULSE 89; O2SAT 98
[2022-04-20 18:20] LABS: Adenovirus Not Detected (NOT DETECT); Chlamydia Pneumoniae Not Detected (NOT DETECT); Coronavirus 229E,HKU1,NL63,OC4 Not Detected (NOT DETECT); Human Metapneumovirus Not Detected (NOT DETECT); Human Rhinovirus/Enterovirus Not Detected (NOT DETECT); Influenza A Not Detected (NOT DETECT); Influenza A H1 Not Detected (NOT DETECT); Influenza A H1-2009 Not Detected (NOT DETECT); Influenza A H3 Not Detected (NOT DETECT); Influenza B Not Detected (NOT DETECT); Mycoplasma Pneumoniae Not Detected (NOT DETECT); Parainfluenza Virus Type 1 Not Detected (NOT DETECT); Parainfluenza Virus Type 2 Not Detected (NOT DETECT); Parainfluenza Virus Type 3 Not Detected (NOT DETECT); Parainfluenza Virus Type 4 Not Detected (NOT DETECT); Respiratory Syncytial Virus A Not Detected (NOT DETECT); Respiratory Syncytial Virus B Not Detected (NOT DETECT); SARS-COV-2 Not Detected (NOT DETECT)
== END 2022-04-20 18:00 | disposition home or self-care (01) ==
PROVIDERS: Emergency Provider Family Medicine; PCP Nurse Practitioner
DX: J06.9 Acute upper respiratory infection, unspecified (principal)
CPT/HCPCS: 71045; 80053; 81003; 83690; 85025; 87635; 93005; 99285

== ENCOUNTER → 2022-06-05 13:25 | Outpatient (BNVA) | payer OTHER, SELFPAY | PROVIDERS: PCP Nurse Practitioner; Visit Provider Obstetrics & Gynecology | DX: R10.2 Pelvic and perineal pain (principal); I83.90 Asymptomatic varicose veins of unspecified lower extremity | CPT/HCPCS: 76830 ==

== ENCOUNTER 2022-07-06 08:07 | Day surgery (SDC) | payer OTHER, SELFPAY ==
[2022-07-05 12:00] VITALS: BMI 32.5
[2022-07-06] VITALS (10 sets, daily range): BP systolic 98–124; BP diastolic 62–87; PULSE 74–91; RESP 14–18; TEMP 36.1–36.5; O2SAT 95–100
--- NOTE | 2022-07-06 08:08 | PM.HP ---
Providers/Chief Complaint Admitting Physician: Sebastien Bustos M.D. Primary Care Provider: JAYE Cordero Chief Complaint: abnormal uterine bleeding History of Present Illness Shweta Pham is a 41 year old female with irregular periods, sometimes bleeding for 10 days, heavy with clots Medications/Allergies Home Medications Medication Instructions Recorded Confirmed Last Taken Type levothyroxine 75 mcg tablet 75 mcg PO QAM 04/07/20 07/05/22 07/04/22 History (Synthroid) pantoprazole 40 mg tablet,delayed 40 mg PO QAM 08/11/21 07/05/22 07/05/22 History release (Protonix) adalimumab 40 mg/0.8 mL 40 mg SUBCUT Q7D 04/20/22 07/05/22 06/30/22 History subcutaneous syringe kit (Humira) Allergies Allergy/AdvReac Type Severity Reaction Status Date / Time amoxicillin Allergy ADR-Diarrhe Verified 07/05/22 11:55 a hydrocodone Allergy ADR-Vomitin Verified 07/05/22 11:55 g ibuprofen Allergy kidney Verified 07/05/22 11:55 [From NeoProfen (ibuprofen problems lysn)(PF)] NSAIDS (Non-Steroidal Allergy Unknown Verified 07/05/22 11:55 Anti-Inflamma oxycodone Allergy ADR-Vomitin Verified 07/05/22 11:55 g PFSH Acute PFSH: Medical History Hidradenitis suppurativa High risk medication use Hypothyroid Irritable bowel Mixed hyperlipidemia Surgical History H/O knee surgery History of tubal ligation Hx of appendectomy Family History Mother Breast cancer Hypertension Denies family history of Colon cancer Ovarian cancer Diabetes Heart disease Hypercholesteremia Uterine cancer Thyroid disease Stroke Female Reproductive History: Date of last menstrual period: 07/05/22 Vitals/I&O/Wt Weight last 48 hrs Weight 172 lb Weight 172 lb Physical Exam Narrative: HEENT: normal Lungs: clear Cor: RRR no m Abd: soft, nontender A&P Assessment and plan (1) Abnormal uterine bleeding: plan hysteroscopy, endometrial sampling, possible endometrial polypectomy Attestations Medical Necessity Statement*: patient with abnormal uterine bleeding for hysteroscopy, endometrial sampling Coding Level of Care Code Acute Code for Chg Fwd Diagnoses Abnormal uterine bleeding N93.9 Time Spent (min) 30
--- NOTE | 2022-07-06 08:13 | W.PM.OPSUD ---
Surgery/Procedure H&P Update DATE OF PROCEDURE: July 06, 2022 DATE H&P PERFORMED: 11/25/20 CHANGES TO PREVIOUS DOCUMENTATION: none PREOP DIAGNOSIS: abnormal uterine bleeding PRIMARY INDICATION FOR PROCEDURE: abnormal uterine bleeding PLANNED PROCEDURE: Operation Date: 07/06/22 10:00 Proposed Procedures p Hysteroscopy with Myosure, endometrial sampling 13084, possible endometrial polypectomy 75671,N93.9(Not Applicable) - Sebastien Bustos MD s possible endometrial polypectomy 23797(Not Applicable) - Sebastien Bustos MD
[2022-07-06 08:33] LABS: OR HCG Qualitative Urine Negative (Negative)
[2022-07-06] MEDS: sodium chloride 0.9% 1,000 ML 30 ML IV (09:00)
--- NOTE | 2022-07-06 10:39 | ANES.PREANE2 ---
Pre-Anesthetic Assessment Height/Weight: Height 1.55 m Weight 78.018 kg Temp Pulse Resp BP Pulse Ox O2 Del Method 97.7 F 84 18 124/87 97 Room Air 07/06/22 08:23 07/06/22 08:23 07/06/22 08:23 07/06/22 08:23 07/06/22 08:23 07/06/22 08:26 Preop Diagnosis: abnormal uterine bleeding Operation Date: 07/06/22 10:00 Proposed Procedures p Hysteroscopy with Myosure, endometrial sampling 52980, possible endometrial polypectomy 98626,N93.9(Not Applicable) - Sebastien Bustos MD s possible endometrial polypectomy 75650(Not Applicable) - Sebastien Bustos MD Familial anesthetic complications: none Was Beta Stew taken within 24 hours: N/A Was Clonidine taken within 24 hours: N/A Last intake: Intake Last Liquid Date 07/05/22 Last Liquid Time 23:30 Last Solid Date 07/05/22 Last Solid Time 19:30 Social Tobacco and No alcohol Exam alert, oriented x 3 and regular rate & rhythm Airway Submandibular: within normal limits Cervical ROM: within normal limits Mallampati: Class II Dentition: false Pulmonary Chronic Obstructive Pulmonary Disease GI Gastroesophageal Reflux Disease Metabolic Thyroid Disease Anesthetic Plan ASA status: 3 Anesthesia: General Medications/Allergies Home Medications Medication Instructions Recorded Confirmed Last Taken Type levothyroxine 75 mcg tablet 75 mcg PO QAM 04/07/20 07/05/22 07/05/22 History (Synthroid) pantoprazole 40 mg tablet,delayed 40 mg PO QAM 08/11/21 07/05/22 07/05/22 History release (Protonix) adalimumab 40 mg/0.8 mL 40 mg SUBCUT Q7D 04/20/22 07/05/22 06/30/22 History subcutaneous syringe kit (Humira) Allergies Allergy/AdvReac Type Severity Reaction Status Date / Time amoxicillin Allergy ADR-Diarrhe Verified 07/06/22 08:21 a hydrocodone Allergy ADR-Vomitin Verified 07/06/22 08:21 g ibuprofen Allergy kidney Verified 07/06/22 08:21 [From NeoProfen (ibuprofen problems lysn)(PF)] NSAIDS (Non-Steroidal Allergy Unknown Verified 07/06/22 08:21 Anti-Inflamma oxycodone Allergy ADR-Vomitin Verified 07/06/22 08:21 g PFSH Anesthesia Medical History Hidradenitis suppurativa High risk medication use Hypothyroid Irritable bowel Mixed hyperlipidemia Surgical History H/O knee surgery History of tubal ligation Hx of appendectomy Family History Mother Breast cancer Hypertension Denies family history of Colon cancer Ovarian cancer Diabetes Heart disease Hypercholesteremia Uterine cancer Thyroid disease Stroke Female Reproductive History Date of last menstrual period: 07/05/22 Data Anesthesia Cardiac Studies: No Data to Display
--- NOTE | 2022-07-06 14:23 | ANE.PACU2 ---
Inpatient post-anesthesia follow up: Airway intact: Yes Vital signs: Temperature 97.0 F Pulse Rate 74 Respiratory Rate 18 Blood Pressure 112/74 Pulse Oximetry 97 Oxygen Delivery Me thod Room Air Oxygen Flow Rate 10 Fraction of Inspir ed Oxygen Hydration adequate: Yes Nausea and vomiting: No Pain level: 2 Mental status: Baseline
--- NOTE | 2022-07-11 08:29 | PM.OP ---
Operative Report Date of procedure: July 06, 2022 Pre-op diagnosis: Preop Diagnosis abnormal uterine bleeding Post-op diagnosis: abnormal uterine bleeding Post-op findings: normal endometrial cavity no polyps / fibroids minimal endometrial tissue Procedure done: hysteroscopy; curettage of uterus Specimens removed/disposition: endometrial curettings Surgeon: Sebastien Bustos M.D. Estimated blood loss: 3 cc Complications: none Condition: stable Disposition: PACU Brief History: patient with abnormal uterine bleeding Procedure: Informed consent signed. Patient taken to the operating room.? Anesthesia induced.? Patient was placed in dorsolithotomy position, prepped and draped for hysteroscopy.? A bivalve speculum was placed in the vagina.? The anterior lip of the cervix was grasped with a sharp-toothed tenaculum.? The cervix was serially dilated with Hegar dilators.? .? A hysteroscope was placed into the endometrial cavity.? The endometrial cavity was seen to be normal. There were no polyps or fibroids. There was minimal endometrial tissue.? The hysteroscope was then removed.? Endometrial curettage was done with a sharp curette. Endometrial tissue was sent to pathology. The sharp-toothed tenaculum was removed.? There was no bleeding from the endometrial cavity or cervix.? The patient was then placed supine and awakened and taken to the PACU. Postop condition:? stable EBL:? none Sponge and instruments counts were normal x 2 Complications:? none
== END 2022-07-06 12:37 | disposition home or self-care (01) ==
PROVIDERS: Anesthesiology; PCP Nurse Practitioner; Visit Provider Obstetrics & Gynecology
PROC: 0UDB8ZZ Extraction of Endometrium, Via Natural or Artificial Opening Endoscopic (ICD-10-PCS; CPT 58558; principal; 2022-07-06 10:00)
PROC: (CPT 58563; 2022-07-06 10:00)
DX: N93.9 Abnormal uterine and vaginal bleeding, unspecified (principal); J44.9 Chronic obstructive pulmonary disease, unspecified; K21.9 Gastro-esophageal reflux disease without esophagitis; E03.9 Hypothyroidism, unspecified; E78.2 Mixed hyperlipidemia; Z79.899 Other long term (current) drug therapy; Z88.0 Allergy status to penicillin
CPT/HCPCS: 58563; 84703; 88305; J1100; J1200; J2250; J2370; J2405; J2704; J3010; J7030

== ENCOUNTER → 2022-09-14 08:56 | Outpatient (BNVA) | payer OTHER, SELFPAY | PROVIDERS: PCP Nurse Practitioner; Visit Provider Internal Medicine | DX: R53.83 Other fatigue (principal); R76.8 Other specified abnormal immunological findings in serum; M25.50 Pain in unspecified joint; Z79.899 Other long term (current) drug therapy | CPT/HCPCS: 36415; 80053; 81003; 82306; 82533; 82550; 82607; 82784; 83516; 83735; 84100; 84425; 84439; 85025; 85651; 86140; 86200; 86431; 86704; 86803; 87340; 99204 ==

== ENCOUNTER 2022-10-17 12:59 | Outpatient (CLI) | payer OTHER, SELFPAY ==
--- NOTE | 2022-10-17 13:38 | MM_ITS ---
WS: [id number] BILATERAL 3D TOMOSYNTHESIS DIGITAL SCREENING MAMMOGRAPHY WITH CAD CLINICAL INFORMATION: SCREENING HISTORY: Screening mammogram. No current complaints. COMPARISON: New baseline TECHNIQUE: Bilateral CC and MLO views. FINDINGS: The breasts are composed of heterogeneous fibroglandular density tissue, which can limit the detectio n of small underlying mass lesions. No suspicious mass, asymmetry, calcifications, or architectural d istortion. No evidence of malignancy. MM/[place] [id number] IMPRESSION: BI-RADS: 1-Negative FOLLOW UP: 1 Year Follow-up Recommend return to annual screening mammography.
== END 2022-10-17 13:00 | disposition home or self-care (01) ==
PROVIDERS: PCP Nurse Practitioner; Visit Provider Nurse Practitioner
DX: Z12.31 Encounter for screening mammogram for malignant neoplasm of breast (principal)
CPT/HCPCS: 77063; 77067

== ENCOUNTER → 2022-10-25 13:56 | Outpatient (BNVA) | payer OTHER, SELFPAY | PROVIDERS: PCP Nurse Practitioner; Visit Provider Internal Medicine | DX: R76.8 Other specified abnormal immunological findings in serum (principal); R53.83 Other fatigue; M25.50 Pain in unspecified joint; G47.30 Sleep apnea, unspecified | CPT/HCPCS: 36415; 73120; 85651; 86140; 99214 ==

== ENCOUNTER 2022-12-12 15:24 | Outpatient (CLI) | payer OTHER, SELFPAY ==
[2022-12-16 13:08] LABS: Quantiferon Mitogen >10.00 IU/mL; Quantiferon Nil 0.02 IU/mL; Quantiferon Plus TB1 0.03 IU/mL; Quantiferon Plus TB2 0.05 IU/mL; Quantiferon TB Gold NEGATIVE (NEGATIVE)
== END 2022-12-12 15:25 | disposition home or self-care (01) ==
LOC: LAB 15:26
PROVIDERS: PCP Nurse Practitioner; Visit Provider Nurse Practitioner Family
DX: L73.2 Hidradenitis suppurativa (principal); T80.89XA Other complications following infusion, transfusion and therapeutic injection, initial encounter; Y84.8 Other medical procedures as the cause of abnormal reaction of the patient, or of later complication, without mention of misadventure at the time of the procedure; L81.4 Other melanin hyperpigmentation; L57.8 Other skin changes due to chronic exposure to nonionizing radiation
CPT/HCPCS: 36415; 86480; 99214

== ENCOUNTER → 2023-04-13 10:38 | Outpatient (BNVA) | payer OTHER, SELFPAY | PROVIDERS: PCP Nurse Practitioner; Visit Provider Nurse Practitioner Family | DX: L73.2 Hidradenitis suppurativa (principal); L81.4 Other melanin hyperpigmentation; L72.0 Epidermal cyst | CPT/HCPCS: 10060; 99214 ==

== ENCOUNTER → 2023-07-18 10:50 | Outpatient (BNVA) | payer OTHER, SELFPAY | PROVIDERS: PCP Nurse Practitioner; Visit Provider Nurse Practitioner Family | DX: L81.4 Other melanin hyperpigmentation (principal); L57.8 Other skin changes due to chronic exposure to nonionizing radiation; L70.0 Acne vulgaris | CPT/HCPCS: 99214 ==

== ENCOUNTER → 2023-08-29 07:50 | Outpatient (BNVA) | payer OTHER, SELFPAY | PROVIDERS: PCP Nurse Practitioner; Referring Provider Nurse Practitioner; Visit Provider Surgery | DX: K58.9 Irritable bowel syndrome, unspecified | CPT/HCPCS: 83630; 83993; 99203; 99214 ==

== ENCOUNTER 2023-09-11 08:35 | Day surgery (SDC) | payer OTHER, SELFPAY ==
[2023-09-11 09:17] VITALS: BP 122/74; PULSE 79; RESP 18; TEMP 36.5; O2SAT 95; BMI 32.6
[2023-09-11] MEDS: sodium chloride 0.9% 1,000 ML 30 ML IV (09:21)
[2023-09-11 09:31] LABS: OR HCG Qualitative Urine Negative (Negative)
--- NOTE | 2023-09-11 09:33 | W.PM.OPSUD ---
Surgery/Procedure H&P Update DATE OF PROCEDURE: September 11, 2023 DATE H&P PERFORMED: 08/29/23 H&P UPDATE INFORMATION: I have reviewed H&P completed within last 30 days, I have examined patient prior to procedure, No changes to prior documentation and Changes to prior documentation as noted here PLANNED PROCEDURE: Operation Date: 09/11/23 10:15 Proposed Procedures p EGD 36714, 21163, G0105, K58.9, K29.70, R19.4,Z12.11(Not Applicable) - Kenrick Bonilla MD s Colonoscopy(Not Applicable) - Kenrick Bonilla MD
--- NOTE | 2023-09-11 09:57 | P.ANESASSM_ITS ---
Pre-Anesthetic Assessment Height/Weight: Height 1.55 m Weight 78.471 kg Temp Pulse Resp BP Pulse Ox O2 Del Method 97.7 F 79 18 122/74 95 Room Air 09/11/23 09:17 09/11/23 09:17 09/11/23 09:17 09/11/23 09:17 09/11/23 09:17 09/11/23 09:17 Operation Date: 09/11/23 10:15 Proposed Procedures p EGD 85962, 99395, G0105, K58.9, K29.70, R19.4,Z12.11(Not Applicable) - Kenrick Bonilla MD s Colonoscopy(Not Applicable) - Kenrick Bonilla MD Familial anesthetic complications: None Was Beta Stew taken within 24 hours: N/A Was Clonidine taken within 24 hours: N/A Last intake: Intake Last Liquid Date 09/10/23 Last Liquid Time 22:45 Last Solid Date 09/09/23 Last Solid Time 23:55 Social Alcohol and Tobacco 1 pack(s) per day Exam alert, oriented x 3, clear to auscultation bilaterally and regular rate & rhythm Airway Submandibular: within normal limits (TMJ) Cervical ROM: within normal limits Mallampati: Class II Dentition: full Comments: Comments: Bridge has been cut d/t upcoming wisdom teeth surgery, bridge is loose History/ROS No significant history except as noted and No significant complaints Pulmonary Chronic Obstructive Pulmonary Disease and Sleep Apnea (CPAP at night) CV/HEM None reported Nephritis 2010 Hepatic None reported GI Gastroesophageal Reflux Disease (Controlled with meds, none this morning) Metabolic Hyperlipidemia and Thyroid Disease [facility] [place]/[facility] Lower Back Pain Neuropsych Headache and Neuropathy Anesthetic Plan ASA status: 3 Anesthesia: Anesthesia Evaluation, General and MAC Risk of > 500 ml blood loss (7ml/kg in children): No Medications/Allergies Home Medications Medication Instructions Recorded Confirmed Last Taken Type levothyroxine 75 mcg tablet 75 mcg PO QAM 04/07/20 09/11/23 09/10/23 History (Synthroid) pantoprazole 40 mg tablet,delayed 40 mg PO QPM 08/11/21 09/11/23 09/10/23 History release (Protonix) adalimumab 40 mg/0.8 mL 40 mg SUBCUT Q7D 04/20/22 09/11/23 09/07/23 History subcutaneous syringe kit (Humira) duloxetine 30 mg capsule,delayed 30 mg PO DAILY 08/29/23 09/11/23 09/10/23 History release oxybutynin chloride 10 mg 10 mg PO QAM 08/29/23 09/11/23 09/10/23 History tablet,extended release 24 hr rosuvastatin 20 mg tablet 20 mg PO QPM 08/29/23 09/11/23 09/10/23 History Allergies Allergy/AdvReac Type Severity Reaction Status Date / Time amoxicillin Allergy ADR-Diarrhe Verified 09/06/23 11:12 a hydrocodone Allergy ADR-Vomitin Verified 09/06/23 11:12 g ibuprofen Allergy kidney Verified 09/06/23 11:12 [From NeoProfen (ibuprofen problems lysn)(PF)] NSAIDS (Non-Steroidal Allergy Unknown Verified 09/06/23 11:12 Anti-Inflamma oxycodone Allergy ADR-Vomitin Verified 09/06/23 11:12 g Current Medications Generic Name Dose Route Start Last Admin Trade Name Freq PRN Reason Stop Dose Admin Sodium Chloride 1,000 mls @ 30 mls/hr 09/11/23 08:45 09/11/23 09:21 Sodium Chloride 0.9% IV 30 mls/hr .Q24H MEGAN Administration PFSH Anesthesia Medical History SCOTT positive Abnormal uterine bleeding Mixed hyperlipidemia Irritable bowel Hypothyroid High risk medication use Hidradenitis suppurativa Surgical History (Updated 08/29/23 @ 07:[address]) History of tubal ligation Hx of appendectomy H/O knee surgery Family History Mother Breast cancer Hypertension Denies family history of Colon cancer Ovarian cancer Diabetes Heart disease Hypercholesteremia Uterine cancer Thyroid disease Stroke Social History (Updated 08/29/23 @ 07:[address]) Smoking and tobacco/nicotine status: current every day tobacco/nicotine user cigarettes Alcohol intake: current Alcohol intake frequency: holidays/special occasions only Substance/Drug Use: never Female Reproductive History Date of last menstrual period: 08/27/23 Data Anesthesia Cardiac Studies: No Data to Display
[2023-09-11 10:34] VITALS: BP 125/84; PULSE 86; RESP 16; TEMP 36.1; O2SAT 93
[2023-09-11 10:42] VITALS: BP 129/107; PULSE 81; RESP 16; O2SAT 96
--- NOTE | 2023-09-11 11:00 | ANE.PACU2 ---
Inpatient post-anesthesia follow up: Airway intact: Yes Vital signs: Temperature 97 F Pulse Rate 81 Respiratory Rate 16 Blood Pressure 129/107 Pulse Oximetry 96 Oxygen Delivery Me thod Room Air Oxygen Flow Rate Fraction of Inspir ed Oxygen Hydration adequate: Yes Nausea and vomiting: No Pain level: 1 Mental status: Baseline
== END 2023-09-11 11:02 | disposition home or self-care (01) ==
PROVIDERS: Anesthesiology; PCP Nurse Practitioner; Visit Provider Surgery
PROC: 0DJ08ZZ Inspection of Upper Intestinal Tract, Via Natural or Artificial Opening Endoscopic (ICD-10-PCS; CPT 43235; principal; 2023-09-11 10:15)
PROC: 0DJD8ZZ Inspection of Lower Intestinal Tract, Via Natural or Artificial Opening Endoscopic (ICD-10-PCS; CPT 45378; 2023-09-11 10:15)
DX: R19.4 Change in bowel habit (principal); K29.70 Gastritis, unspecified, without bleeding; K58.9 Irritable bowel syndrome, unspecified; J44.9 Chronic obstructive pulmonary disease, unspecified; G47.30 Sleep apnea, unspecified; K21.9 Gastro-esophageal reflux disease without esophagitis; E78.2 Mixed hyperlipidemia; F17.210 Nicotine dependence, cigarettes, uncomplicated
CPT/HCPCS: 43239; 45378; 81025; 88305; 88342; J2704; J7030

== ENCOUNTER → 2023-09-26 13:50 | Outpatient (BNVA) | payer OTHER, SELFPAY | PROVIDERS: PCP Nurse Practitioner; Visit Provider Surgery | DX: R19.7 Diarrhea, unspecified; Z90.49 Acquired absence of other specified parts of digestive tract | CPT/HCPCS: 99213 ==

== ENCOUNTER → 2023-11-20 10:35 | Outpatient (BNVA) | payer OTHER, SELFPAY | PROVIDERS: PCP Nurse Practitioner; Visit Provider Nurse Practitioner Family | DX: L73.2 Hidradenitis suppurativa (principal); L81.4 Other melanin hyperpigmentation; L57.8 Other skin changes due to chronic exposure to nonionizing radiation; L57.0 Actinic keratosis; L70.0 Acne vulgaris; D22.62 Melanocytic nevi of left upper limb, including shoulder | CPT/HCPCS: 99214 ==

== ENCOUNTER → 2024-02-27 10:19 | Outpatient (BNVA) | payer OTHER, SELFPAY | PROVIDERS: PCP Nurse Practitioner; Visit Provider Nurse Practitioner Family | DX: L81.4 Other melanin hyperpigmentation (principal); L57.8 Other skin changes due to chronic exposure to nonionizing radiation; D22.62 Melanocytic nevi of left upper limb, including shoulder; L73.2 Hidradenitis suppurativa; Z79.899 Other long term (current) drug therapy | CPT/HCPCS: 10060; 11900; 99213 ==

== ENCOUNTER → 2024-03-20 14:39 | Outpatient (BNVA) | payer OTHER, SELFPAY | PROVIDERS: PCP Nurse Practitioner; Visit Provider Nurse Practitioner Family | DX: L73.2 Hidradenitis suppurativa (principal); Z79.899 Other long term (current) drug therapy; L70.0 Acne vulgaris | CPT/HCPCS: 99214 ==

== ENCOUNTER 2024-07-30 09:25 | Outpatient (CLI) | payer OTHER, SELFPAY ==
--- NOTE | 2024-07-30 09:31 | MM_ITS ---
WS: [id number] BILATERAL SCREENING DIGITAL TOMOSYNTHESIS MAMMOGRAM WITH CAD HISTORY: SCREENING COMPARISON: 10/17/2022 Bilateral CC and MLO views with tomosynthesis and synthetic mammography submitted. Computer aided detection analyzed. Breast composition: The breasts are heterogeneously dense, which may obscure small masses. No suspicious masses, microcalcifications or architectural distortion. Bilateral nipple piercings were not removed for this examination. MM/MM scr tomosynthesis [id number] IMPRESSION: BI-RADS: 2 - Benign FOLLOW UP: 1 Year Follow-up
== END 2024-07-30 09:26 | disposition home or self-care (01) ==
PROVIDERS: PCP Nurse Practitioner; Visit Provider Nurse Practitioner
DX: Z12.31 Encounter for screening mammogram for malignant neoplasm of breast (principal); R92.333 Mammographic heterogeneous density, bilateral breasts
CPT/HCPCS: 77063; 77067

== ENCOUNTER 2024-12-01 13:50 | Outpatient (CLI) | payer OTHER, SELFPAY | END 2024-12-01 13:51 | disposition home or self-care (01) | PROVIDERS: PCP Nurse Practitioner; Visit Provider Nurse Practitioner Family | DX: L73.2 Hidradenitis suppurativa (principal); L81.4 Other melanin hyperpigmentation; L57.8 Other skin changes due to chronic exposure to nonionizing radiation; L70.0 Acne vulgaris; D22.62 Melanocytic nevi of left upper limb, including shoulder; L72.0 Epidermal cyst | CPT/HCPCS: 10060; 36415; 86480; 99214 ==